=== PATIENT | male | born 1970 | race Caucasian/White ===

== ENCOUNTER → 2017-04-30 | Outpatient (CLI) | payer MEDICARE ==
--- NOTE | 2017-04-30 14:27 | RADIOLOGY REPORT PS360 ---
[id number] VIEWS HISTORY: RT SHOULDER PAIN ORDERING PHYSICIAN: Wili Chau MD PATIENT AGE: 46 years COMPARISON: None FINDINGS: 4 views are obtained including an axillary view. No fracture or dislocation. No lytic or blastic change. There is normal mineralization. The joint spaces are well-preserved. No significant degenerative/arthritic changes. No erosive changes evident. No subacromial stenosis IMPRESSION: Negative, no acute finding
== END ==
LOC: RAD 13:43
DX: M25.511 Pain in right shoulder (principal)